=== PATIENT | male | born 1990 | race Caucasian/White ===

== ENCOUNTER 2018-11-19 22:00 | Emergency (ER) | payer BC ==
[~2018-11-19] VITALS: Ht 172.7 cm; Wt 64.0 kg
[2018-11-19 22:04] VITALS: BP 122/75; Ht 172.7 cm; Wt 64.0 kg
== END 2018-11-20 00:10 | disposition home or self-care (01) ==
LOC: ED 22:00
DX: J06.9 Acute upper respiratory infection, unspecified (principal)